=== PATIENT | female | born 1955 ===

== ENCOUNTER 2024-08-14 11:45 | Outpatient (REF) | payer MEDICARE, SELFPAY ==
[2024-08-14 17:15] LABS: Anion Gap 8.8 mmol/L (3-11); BUN 16 mg/dL (7-18); CO2 29.2 mmol/L (21.0-32.0); CREATININE 0.9 mg/dL (0.55-1.02); Calcium 9.9 mg/dL (8.5-10.1); Calculated LDL 256 mg/dL (<100); Chloride 105 mmol/L (98-107); Cholesterol 368 mg/dL (<200); Estimated GFR 69.64 (mL/min/1.73m2); Glucose 92 mg/dL (74-106); HDL Cholesterol 104 mg/dL (40-60); Potassium 4.5 mmol/L (3.5-5.1); Sodium 143 mmol/L (136-145); Triglyceride 44 mg/dL (<150)
== END 2024-08-14 11:46 | disposition home or self-care (01) ==
LOC: NCHCN 11:45
PROVIDERS: PCP Internal Medicine; Visit Provider Internal Medicine
DX: Z13.6 Encounter for screening for cardiovascular disorders (principal); R30.0 Dysuria; R82.89 Other abnormal findings on cytological and histological examination of urine
CPT/HCPCS: 80048; 80061; 87077; 87086; 87186